=== PATIENT | female | born 1985 | race Caucasian/White ===

== ENCOUNTER 2017-07-14 20:37 | Emergency (ER) | payer OTHER ==
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
[2017-07-14] MEDS ORDERED: TORAdol 30 mg Injection IM ONE (21:31)
[2017-07-14] MEDS ORDERED: TORAdol 30 mg Injection ONE (21:46)
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
[2017-07-14 22:07] VITALS: BP 115/82; PULSE 80; O2SAT 98
== END 2017-07-14 22:08 | disposition home or self-care (01) ==
LOC: ED 20:37
DX: S76.012A Strain of muscle, fascia and tendon of left hip, initial encounter (principal); S76.912A Strain of unspecified muscles, fascia and tendons at thigh level, left thigh, initial encounter; S89.92XA Unspecified injury of left lower leg, initial encounter; M25.562 Pain in left knee; V89.2XXA Person injured in unspecified motor-vehicle accident, traffic, initial encounter; F17.200 Nicotine dependence, unspecified, uncomplicated
CPT/HCPCS: 73562; 73590; 96372; 99283; 99284; J1885

== ENCOUNTER 2023-08-10 06:58 | Emergency (ER) | payer OTHER ==
[2023-08-10 07:24] VITALS: PULSE 91; TEMP 98.2; O2SAT 98
[2023-08-10] MEDS ORDERED: Zofran 4 MG/2 ML VIAL ONE (07:32)
[2023-08-10] MEDS ORDERED: Sodium Chloride 0.9% 1000 ML 1,000 ML ONE (07:32)
[2023-08-10] MEDS ORDERED: TORAdol 30 mg Injection ONE (07:32)
[2023-08-10] MEDS ORDERED: Hydromorphone 1 mg/ml Injection ONE (07:32)
[2023-08-10 07:34] LABS: BASOPHIL % 0.5 % (0.0-0.4); Basophil (Absolute #) 0.06 x10^3/uL (0-0.4); Eosinophil % 2.1 % (0.00-5.0); Eosinophil (Absolute #) 0.25 x10^3/uL (0-0.5); IMMATURE GRAN # 0.05 x10^3u/L (0.00-0.03); IMMATURE GRAN % 0.4 % (0.00-0.4); Lymphocyte (Absolute #) 1.45 x10^3/uL (1.0-4.6); Lymphocytes % 12.1 % (24.0-44.0); Mean Cell Volume 90.7 fL (78-100); Mean Corpuscular Hemoglobin 29.4 pg (26-32); Mean Corpuscular Hgb Concent. 32.4 g/dL (32-36); Mean Platelet Volume 9.3 fL (7.5-11.0); Monocytes % 5.8 % (0.0-12.0); Neutrophil % 79.1 % (36.0-66.0); Platelet Count 310 x10^3/uL (150-450); Red Blood Count 4.08 x10^6/uL (4.1-5.4)
[2023-08-10 07:36] LABS: Appearance Clear (Clear); Bilirubin Negative (Negative); Blood Negative (Negative); Glucose, Urine Negative (Negative); Ketones Negative (Negative); Leukocyte Esterase Negative (Negative); Nitrite Negative (Negative); Protein,Urine Dip Negative (Negative); Urobilinogen 0.2 mg/dL (0.2)
[2023-08-10] MEDS: Hydromorphone 1 mg/ml Injection IV ONE (07:37)
[2023-08-10] MEDS: TORAdol 30 mg Injection IV ONE (07:37)
[2023-08-10] MEDS: Sodium Chloride 0.9% 1000 ML 1,000 ML IV STA (07:37)
[2023-08-10] MEDS: Zofran 4 MG/2 ML VIAL IV ONE (07:37)
[2023-08-10 07:54] LABS: ALBUMIN 4.3 g/dL (3.5-5.0); ANION GAP 13.6 MEQ/L (5-15); BILIRUBIN,TOTAL 0.2 mg/dL (0.2-1.3); Calcium 9.3 mg/dL (8.4-10.2); Creatinine 1 0.69 mg/dL (0.52-1.04); EST GLOMERULAR FILTRATION RATE 115.3 ML/MIN; Potassium 4.2 mmol/L (3.5-5.1); Total Protein 7.5 g/dL (6.3-8.2)
--- NOTE | 2023-08-10 08:00 | ERPHSYRPT ---
- History of Present Illness Time Seen by Provider: 08/10/23 07:40 Historian: patient, family Exam Limitations: no limitations Patient Subjective Stated Complaint: Pt c/o of right sided back flank pain that radiates to the lower right abdomen Triage Nursing Assessment: Pt brought to the ER by her mother, yasmeen lindsay, rates abdominal pain as 9/10, no difficulty with breathing, denies problems with bowels, began vomiting today, appears to be in moderate pain Physician History: Patient is a 38-year-old white female who presents with severe right flank pain which started yesterday she was actually seen in this ER yesterday had a noncontrast CT of the abdomen pelvis which was read as totally normal. She complains of sharp stabbing pain she has had some chills and sweats she has had some nausea and vomiting but no diarrhea and no documented fever. Examination shows tenderness with some slight rebound in the right lower quadrant. Timing/Duration: yesterday, worse Quality: stabbing Abdominal Pain Onset Location: flank (Right flank) Pain Radiation: groin Severity of Pain-Max: severe Severity of Pain-Current: severe Modifying Factors: Improves With: analgesics Associated Symptoms: diaphoresis, fever/chills, nausea, vomiting Allergies/Adverse Reactions: No Known Drug Allergies Allergy (Verified 08/10/23 07:24) Hx Tetanus, Diphtheria Vaccination/Date Given: Yes Hx Influenza Vaccination/Date Given: No Hx Pneumococcal Vaccination/Date Given: No Travel Risk - International Travel Have you traveled outside of the country in past 3 weeks: No - Emerging Infectious Disease Are you exhibiting symptoms associated with any current EIDs: Yes Symptoms: Abdominal Pain, Vomitting - Review of Systems Constitutional: Chills, Night Sweats, No Fever Eyes: No Symptoms Ears, Nose, & Throat: No Symptoms Respiratory: No Symptoms, No Cough, No Dyspnea Cardiac: No Symptoms, No Chest Pain, No Edema, No Syncope Abdominal/Gastrointestinal: Abdominal Pain, No Nausea, No Vomiting, No Diarrhea Genitourinary Symptoms: No Dysuria Musculoskeletal: No Back Pain, No Neck Pain Skin: No Rash Neurological: No Dizziness, No Focal Weakness, No Sensory Changes Psychological: No Symptoms Endocrine: No Symptoms All Other Systems: Reviewed and Negative - Past Medical History Pertinent Past Medical History: No Neurological History: No Pertinent History ENT History: No Pertinent History Cardiac History: No Pertinent History Respiratory History: No Pertinent History Endocrine Medical History: No Pertinent History Musculoskeletal History: Fractures GI Medical History: No Pertinent History History: No Pertinent History Psycho-Social History: No Pertinent History Female Reproductive Disorders: No Pertinent History Other Medical History: FX WRIST AND NOSE - Past Surgical History Past Surgical History: Yes Neuro Surgical History: No Pertinent History Cardiac: No Pertinent History Respiratory: No Pertinent History Gastrointestinal: No Pertinent History Genitourinary: No Pertinent History Musculoskeletal: No Pertinent History Female Surgical History: Section - Female History Hx Now: No - Social History Smoking Status: Current every day smoker Exposure to second hand smoke: No Drug Use: none Patient Lives Alone: No - Nursing Vital Signs Nursing Vital Signs: Initial Vital Signs Temperature 98.2 F 08/10/23 07:15 Pulse Rate 91 H 08/10/23 07:15 Blood Pressure 108/78 08/10/23 07:15 O2 Sat by Pulse Oximetry 98 08/10/23 07:15 Pain Scale Pain Intensity 5 - Physical Exam General Appearance: moderate distress, alert Eye Exam: PERRL/EOMI, eyes nml inspection Ears, Nose, Throat Exam: normal ENT inspection, pharynx normal, moist mucous membranes Neck Exam: normal inspection, non-tender, supple, full range of motion Respiratory Exam: normal breath sounds, lungs clear, No respiratory distress Cardiovascular Exam: regular rate/rhythm, normal heart sounds Gastrointestinal/Abdomen Exam: tenderness (Tenderness in the right flank and ri ght lower quadrant), guarding, rebound (Slight rebound in the right lower quadrant), No normal bowel sounds (Bowel sounds decreased), No mass Pelvic Exam: not done Rectal Exam: deferred Back Exam: normal inspection, normal range of motion, No CVA tenderness, No vertebral tenderness Extremity Exam: normal inspection, normal range of motion, pelvis stable, other (Straight leg raising is positive on the left) Neurologic Exam: alert, oriented x 3, cooperative, normal mood/affect, nml cerebellar function, sensation nml, No motor deficits Skin Exam: normal color, warm, dry SpO2 Interpretation: normal SpO2: 98 O2 Delivery: Room Air - Course Nursing assessment & vital signs reviewed: Yes - CT Exams Abdomen/Pelvis CT Interpretation: Negative Ordered Tests: Active Orders 24 hr Category Date Time Status IV Insertion STAT Care 08/10/23 07:16 Active ABDOMEN AND PELVIS W CONTRAST [CT] Stat Exams 08/10/23 07:17 Completed CHEST 1 VIEW (PORTABLE) Stat Exams 08/10/23 07:17 Taken AMYLASE Stat Lab 08/10/23 07:30 Completed CBC W DIFF Stat Lab 08/10/23 07:30 Completed CMP Stat Lab 08/10/23 07:30 Completed D-DIMER QUANTITATIVE Stat Lab 08/10/23 08:24 Completed LIPASE Stat Lab 08/10/23 07:30 Completed Lactic Acid Stat Lab 08/10/23 07:22 Completed UA W/RFX UR CULTURE Stat Lab 08/10/23 07:16 Completed Medication Summary Discontinued Medications Generic Name Dose Route Start Last Admin Trade Name Freq PRN Reason Stop Dose Admin Hydromorphone HCl 1 mg 08/10/23 07:16 08/10/23 07:37 Hydromorphone 1 Mg/1ml Inj IV 08/10/23 07:17 1 mg STAT ONE Administration Hydromorphone HCl Confirm 08/10/23 07:32 Hydromorphone 1 Mg/1ml Inj Administered 08/10/23 07:33 Dose 1 mg .ROUTE .STK-MED ONE Sodium Chloride 1,000 mls @ 999 mls/hr 08/10/23 07:16 08/10/23 08:41 Sodium Chloride 0.9% 1000 Ml IV 08/10/23 08:16 Infused .Q1H1M STA Infusion Sodium Chloride Confirm 08/10/23 07:32 Sodium Chloride 0.9% 1000 Ml Administered 08/10/23 07:33 Dose 1,000 mls @ ud .ROUTE .STK-MED ONE Ketorolac Tromethamine Confirm 08/10/23 07:32 Ketorolac Tromethamine 30 Mg/Ml Inj Administered 08/10/23 07:33 Dose 30 mg .ROUTE .STK-MED ONE Ketorolac Tromethamine 30 mg 08/10/23 07:36 08/10/23 07:37 Ketorolac Tromethamine 30 Mg/Ml Inj IV 08/10/23 07:37 30 mg STAT ONE Administration Ondansetron HCl 4 mg 08/10/23 07:16 08/10/23 07:37 Ondansetron Hcl 4 Mg/2 Ml Vial IV 08/10/23 07:17 4 mg STAT ONE Administration Ondansetron HCl Confirm 08/10/23 07:32 Ondansetron Hcl 4 Mg/2 Ml Vial Administered 08/10/23 07:33 Dose 4 mg .ROUTE .STK-MED ONE Lab/Rad Data: Laboratory Result Diagrams 08/10/23 07:30 08/10/23 07:30 Laboratory Results 08/10/23 08/10/23 08/10/23 Range/Units 08:24 07:30 07:30 WBC 12.0 H (4.0-10.5) x10^3/uL RBC 4.08 L (4.1-5.4) x10^6/uL Hgb 12.0 (12.0-16.0) g/dL Hct 37.0 (35-47) % MCV 90.7 (78-100) fL MCH 29.4 (26-32) pg MCHC 32.4 (32-36) g/dL RDW 13.0 (11.5-14.0) % Plt Count 310 (150-450) x10^3/uL MPV 9.3 (7.5-11.0) fL Gran % 79.1 H (36.0-66.0) % Immature Gran % (Auto) 0.4 (0.00-0.4) % Nucleat RBC Rel Count 0.0 (0.00-0.1) % Eos # (Auto) 0.25 (0-0.5) x10^3/uL Immature Gran # (Auto) 0.05 H (0.00-0.03) x10^3u/L Absolute Lymphs (auto) 1.45 (1.0-4.6) x10^3/uL Absolute Monos (auto) 0.70 (0.0-1.3) x10^3/uL Absolute Nucleated RBC 0.00 (0.00-0.01) x10^3u/L Lymphocytes % 12.1 L (24.0-44.0) % Monocytes % 5.8 (0.0-12.0) % Eosinophils % 2.1 (0.00-5.0) % Basophils % 0.5 (0.0-0.4) % Absolute Granulocytes 9.50 H (1.4-6.9) x10^3/uL Basophils # 0.06 (0-0.4) x10^3/uL D-Dimer 0.43 (0.0-0.50) mg/L Sodium 140 (135-145) mmol/L Potassium 4.2 (3.5-5.1) mmol/L Chloride 106 (98-107) mmol/L Carbon Dioxide 24 (22-30) mmol/L Anion Gap 13.6 (5-15) MEQ/L BUN 11 (7-17) mg/dL Creatinine 0.69 (0.52-1.04) mg/dL Estimated GFR 115.3 ML/MIN Glucose 97 (74-106) mg/dL Lactic Acid (0.4-2.0) Calcium 9.3 (8.4-10.2) mg/dL Total Bilirubin 0.20 (0.2-1.3) mg/dL AST 32 (14-36) U/L ALT 33 (0-35) U/L Alkaline Phosphatase 63 (38-126) U/L Serum Total Protein 7.5 (6.3-8.2) g/dL Albumin 4.3 (3.5-5.0) g/dL Amylase 106 (30-110) U/L Lipase 64 (23-300) U/L Urine Color (Yellow) Urine Appearance (Clear) Urine pH (4.6-8.0) Ur Specific [place] (1.005-1.030) Urine Protein (Negative) Urine Glucose (UA) (Negative) mg/dL Urine Ketones (Negative) Urine Blood (Negative) Urine Nitrite (Negative) Urine Bilirubin (Negative) Urine Urobilinogen (0.2) mg/dL Ur Leukocyte Esterase (Negative) Urine Microscopic RBC (0-5) /HPF Urine Microscopic WBC (0-5) /HPF Ur Epithelial Cells (None Seen) /HPF Urine Bacteria (None Seen) /HPF Urine Culture Reflexed (NO) 08/10/23 08/10/23 Range/Units 07:22 07:16 WBC (4.0-10.5) x10^3/uL RBC (4.1-5.4) x10^6/uL Hgb (12.0-16.0) g/dL Hct (35-47) % MCV (78-100) fL MCH (26-32) pg MCHC (32-36) g/dL RDW (11.5-14.0) % Plt Count (150-450) x10^3/uL MPV (7.5-11.0) fL Gran % (36.0-66.0) % Immature Gran % (Auto) (0.00-0.4) % Nucleat RBC Rel Count (0.00-0.1) % Eos # (Auto) (0-0.5) x10^3/uL Immature Gran # (Auto) (0.00-0.03) x10^3u/L Absolute Lymphs (auto) (1.0-4.6) x10^3/uL Absolute Monos (auto) (0.0-1.3) x10^3/uL Absolute Nucleated RBC (0.00-0.01) x10^3u/L Lymphocytes % (24.0-44.0) % Monocytes % (0.0-12.0) % Eosinophils % (0.00-5.0) % Basophils % (0.0-0.4) % Absolute Granulocytes (1.4-6.9) x10^3/uL Basophils # (0-0.4) x10^3/uL D-Dimer (0.0-0.50) mg/L Sodium (135-145) mmol/L Potassium (3.5-5.1) mmol/L Chloride (98-107) mmol/L Carbon Dioxide (22-30) mmol/L Anion Gap (5-15) MEQ/L BUN (7-17) mg/dL Creatinine (0.52-1.04) mg/dL Estimated GFR ML/MIN Glucose (74-106) mg/dL Lactic Acid 0.8 (0.4-2.0) Calcium (8.4-10.2) mg/dL Total Bilirubin (0.2-1.3) mg/dL AST (14-36) U/L ALT (0-35) U/L Alkaline Phosphatase (38-126) U/L Serum Total Protein (6.3-8.2) g/dL Albumin (3.5-5.0) g/dL Amylase (30-110) U/L Lipase (23-300) U/L Urine Color Yellow (Yellow) Urine Appearance Clear (Clear) Urine pH 8.0 (4.6-8.0) Ur Specific [place] 1.020 (1.005-1.030) Urine Protein Negative (Negative) Urine Glucose (UA) Negative (Negative) mg/dL Urine Ketones Negative (Negative) Urine Blood Negative (Negative) Urine Nitrite Negative (Negative) Urine Bilirubin Negative (Negative) Urine Urobilinogen 0.2 (0.2) mg/dL Ur Leukocyte Esterase Negative (Negative) Urine Microscopic RBC 0-2 (0-5) /HPF Urine Microscopic WBC 0-2 (0-5) /HPF Ur Epithelial Cells None Seen (None Seen) /HPF Urine Bacteria Rare A (None Seen) /HPF Urine Culture Reflexed NO (NO) - Progress Progress: improved Medical Desision Making - Independent Historian Additional History obtained from: Mother - Diagnostic Testing Diagnostic test were ordered, analyzed, and reviewed by me: Yes Radiological Interpretation: Reviewed by me - Risk of complications Low Risk: Low risk of morbidity from additional dx testing or treatment - Departure Departure Disposition: Home Clinical Impression: Sciatica Condition: Stable Critical Care Time: No Instructions: Sciatica (DC) Prescriptions: Prednisone 10 mg [Deltasone 10 mg] 10 mg PO TID #12 tablet Hydrocodone/Acetaminophen [[place] 10-325 mg] 1 tablet PO Q6H 3 Days #12 tablet MDD 4 Diclofenac Sodium 50 mg [Voltaren 50 mg] 50 mg PO TID 5 Days #15 tablet
[2023-08-10 08:11] LABS: ADD URINE CULTURE? NO (NO); Bacteria Rare /HPF (None Seen); Epithelial Cells None Seen /HPF (None Seen); RBC 0-2 /HPF (0-5); WBC 0-2 /HPF (0-5)
--- NOTE | 2023-08-10 08:44 | XRAY ---
Indication: Right lower quadrant pain. Multiple contiguous axial images obtained through the abdomen and pelvis using 80 cc Isovue 370 contrast. Comparison: One day earlier Lung bases remain clear. Heart not enlarged. Noncontrasted stomach and bowel loops appear nonobstructed again with normal appendix. 1.2 cm left renal cyst. No free fluid/air. Remaining liver, gallbladder, pancreas, spleen, adrenal glands, kidneys, ureters, bladder, uterus, and aorta are normal in CT appearance and attenuation. No pathologic retroperitoneal lymphadenopathy. Impression: Small left renal cyst. Otherwise continued normal CT abdomen/pelvis with contrast exam.
[2023-08-10 09:08] VITALS: BP 100/60
--- NOTE | 2023-08-10 09:21 | XRAY ---
Indication: Pain. Comparison: None Portable chest demonstrates normal heart and lungs. Bony thorax intact with minimal levoscoliosis.
== END 2023-08-10 09:37 | disposition home or self-care (01) ==
LOC: ED 06:58
DX: M54.32 Sciatica, left side (principal); R10.9 Unspecified abdominal pain; R10.31 Right lower quadrant pain; R11.2 Nausea with vomiting, unspecified; Z72.0 Tobacco use
CPT/HCPCS: 36415; 71045; 74177; 80053; 81001; 82150; 83605; 83690; 85025; 85379; 96374; 96375; 99284; J1170; J1885; J2405